=== PATIENT | male | born 1975 | race African-American/Black ===

== ENCOUNTER 2017-03-10 08:24 | Outpatient (CLI) | payer OTHER ==
--- NOTE | 2017-03-10 14:32 | Ultrasound Report ---
ULTRASOUND ABDOMEN COMPLETE: Technique: Transabdominal ultrasound with color Doppler interrogation. History: Abnormal liver function. Findings: The liver parenchyma is echogenic and attenuates the ultrasound beam consistent with diffuse fatty infiltration. There is no evidence for focal liver mass or surface nodularity. The gallbladder dimensions are within normal limits without intraluminal stone, wall thickening, or pericholecystic fluid. The CBD is normal caliber. The visualized portions of the pancreas including the head and proximal body are within normal limits. The kidneys demonstrate no hydronephrosis or mass. Cortical thickness and echogenicity are within normal limits bilaterally. The spleen and aorta are within normal limits. No aneurysmal dilatation is noted. No ascites. The bladder is unremarkable. IMPRESSION: Hepatic steatosis
== END 2017-03-10 08:25 | disposition home or self-care (01) ==
LOC: SPVWC 08:24
PROVIDERS: ATTEND Family Medicine
DX: K76.0 Fatty (change of) liver, not elsewhere classified (principal); R94.5 Abnormal results of liver function studies
CPT/HCPCS: 76700